=== PATIENT | female | born 1965 | race African-American/Black ===

== ENCOUNTER 2016-12-01 09:08 | Emergency (ER) | payer BC ==
[~2016-12-01] VITALS: Ht 157.5 cm; Wt 84.8 kg
[~2016-12-01 09:08] MED LIST: AMLO5TAB2 PO; ARAVA20 MG PO; ATOR40TA59 PO; GLIP2.5T4 PO; LABE200T2 PO; LEVO500T8 PO; LISI40TA PO; METF-620 PO; PRED2.5T PO; TRIA1TAB3 PO
--- NOTE | 2016-12-01 11:22 | RAD ---
Exam performed: Right lower extremity venous Doppler. Clinical Indication: Right leg swelling Date of Service:12/01/16 Comparison : None available Discussion: Multiple longitudinal and transverse high resolution real-time images of the venous system of right lower extremity were obtained with color and Doppler sampling and spectral analysis. The common femoral, superficial femoral, popliteal and proximal calf veins are all patent and demonstrate normal flow and compressibility. Normal respiratory phasicity and augmentation is present. Impression: Normal color duplex ultrasound of the venous system of right lower extremity.
--- NOTE | 2016-12-01 12:07 | PHYS DOC ---
Past Medical History Past Medical History: Arthritis, Diabetes-Type II, High Cholesterol, Hypertension, Other Additional Past Medical Histor: rheumatoid arthritis Past Surgical History: Tubal ligation Alcohol Use: Rarely Drug Use: None Adult General Chief Complaint Chief Complaint: LOWER EXTREMITY SWELLING [facility] HPI Patient is a 51 year old with history of hypertension, high cholesterol, diabetes and arthritis who presents today with right lower extremity swelling that has been going on for the last 3 weeks. Patient states she was seen by the primary care doctor who thought the swelling on the right lower extremity was due to arthritis and gave her some injection in the knee. Patient states her leg has continued to swell. Patient denies any trauma. She states she was also given antibiotics she mentions doxycycline for possible infection to the right lower extremity. Patient states she finished the antibiotics yesterday. Patient is concerned stating she still has the swelling and would like to know if she has infection to the leg. Patient denies any fever warmth or drainage from the right lower extremity. She is very insistent on doing test and to make sure she has no infection on the right lower extremity. Patient states she does elevate the leg whenever she is resting. Review of Systems Review of Systems Constitutional: Denies fever or chills [] Eyes: Denies change in visual acuity, redness, or eye pain [] HENT: Denies nasal congestion or sore throat [] Respiratory: Denies cough or shortness of breath [] Cardiovascular: No additional information not addressed in HPI [] GI: Denies abdominal pain, nausea, vomiting, bloody stools or diarrhea [] : Denies dysuria or hematuria [] Musculoskeletal: Right lower extremity swelling Integument: Denies rash or skin lesions [] Neurologic: Denies headache, focal weakness or sensory changes [] Endocrine: Denies polyuria or polydipsia [] Allergies Allergies Allergies Coded Allergies Type Severity Reaction Last Updated Verified No Known Drug Allergies 04/18/14 No Physical Exam Physical Exam Constitutional: Well developed, well nourished, no acute distress, non-toxic appearance. [] HENT: Normocephalic, atraumatic, bilateral external ears normal, oropharynx moist, no oral exudates, nose normal. [] Eyes: PERRLA, EOMI, conjunctiva normal, no discharge. [] Neck: Normal range of motion, no tenderness, supple, no stridor. [] Cardiovascular:Heart rate regular rhythm, no murmur [] Lungs & Thorax: Bilateral breath sounds clear to auscultation [] Abdomen: Bowel sounds normal, soft, no tenderness, no masses, no pulsatile masses. [] Skin: Warm, dry, no erythema, no rash. [] Back: No tenderness, no CVA tenderness. [] Extremities: Right lower extremity with +1 generalized edema. There is no warmth over the right lower extremity. There is no tenderness on the right lower extremity. Negative Homans sign to the right lower extremity. Full range of motion to the right lower extremity. +2 right pedal pulse. Cap refill less than 2 seconds the right lower extremity. Sensation intact to the right lower extremity. Neurologic: Alert and oriented X 3, normal motor function, normal sensory function, no focal deficits noted. [] Psychologic: Affect normal, judgement normal, mood normal. [] Current Patient Data Vital Signs Vital Signs Date Time Temp Pulse Resp B/P (MAP) Pulse Ox O2 Delivery O2 Flow Rate FiO2 12/01/16 10:06 98.0 73 18 213/88 (129) 96 Room Air 98.0 EKG EKG [] Radiology/Procedures Radiology/Procedures [] Course & Med Decision Making Course & Med Decision Making Pertinent Labs and Imaging studies reviewed. (See chart for details) Patient is in the ED with complaints of right lower extremity swelling for the last 3 weeks. She was seen by the PCP 3 weeks ago, she was given steroid shots in the right knee. She states she was also put on doxycycline. She is concerned she has infection in the right lower extremity. She has no fever. She is no redness to the leg. She is requesting testing to prove she has no infection. I tried reassured patient informing that she has no signs or symptoms of infection to the right lower extremity. Patient continued to insist. I ordered a Doppler of the right lower extremity which was negative. Give patient results. Instructed her to get [id number] MAY hose and wear them during the day when she is up and walking and at night if she can tolerate them. Encouraged her to elevate her right lower extremity above her heart when she is resting. Instructed that follow-up with her own doctor next week. Her blood pressure was elevated at 213/88 with a heart rate of 73 on arrival to the ED. She hadn't taken her blood pressure medicine just prior to coming to the ED. Blood pressure went down to 160s over 80s prior to discharge. Dragon Disclaimer Dragon Disclaimer This electronic medical record was generated, in whole or in part, using a voice recognition dictation system. Departure Departure Impression: Primary Impression: Edema of right lower extremity Additional Impression: Accelerated hypertension Disposition: 01 HOME, SELF-CARE Condition: STABLE Referrals: UNKNOWN PCP NAME (PCP) Follow-up with your own doctor next week Patient Instructions: Edema, [id number] Additional Instructions: You were seen due to swelling on the right lower extremity. You do not have any signs or symptoms of infection. You also completed a dose of antibiotic reducing your chance of infection. We did an ultrasound of the right lower extremity which is normal. Please elevate the extremity. Buy [id number] MAY hose and wear them. They do help with the swelling. Try and elevate your lower extremity above the heart whenever you're resting. Follow-up with your own doctor next week. Problem Qualifiers ESTEFANI PARKS APRN December 01, 2016 12:07
[2016-12-01 12:12] VITALS: BP 161/86
== END 2016-12-01 12:12 | disposition home or self-care (01) ==
LOC: ER 11:03
DX: R60.0 Localized edema (principal); I10 Essential (primary) hypertension; M19.90 Unspecified osteoarthritis, unspecified site; E11.9 Type 2 diabetes mellitus without complications; E78.00 Pure hypercholesterolemia, unspecified; M06.9 Rheumatoid arthritis, unspecified; Z98.51 Tubal ligation status
CPT/HCPCS: 93971; 99284-25

== ENCOUNTER 2016-12-05 16:44 | Emergency (ER) | payer BC ==
[~2016-12-05] VITALS: Ht 156.2 cm; Wt 86.2 kg
[2016-12-05] MEDS ORDERED: AMLO5TAB2 PO (17:17)
--- NOTE | 2016-12-05 17:17 | PHYS DOC ---
Past Medical History Past Medical History: Arthritis, Diabetes-Type II, High Cholesterol, Hypertension, Other Additional Past Medical Histor: rheumatoid arthritis Past Surgical History: Tubal ligation Alcohol Use: Rarely Drug Use: None Adult General Chief Complaint Chief Complaint: HYPERTENSION HPI HPI Patient is a 51 year old female who presents for concern of uncontrolled chronic HTN. She notes not taking amlodipine for approx 5 months and called her PCP office today and was told to come to the ED if she is concerned about starting today. She set up an appointment for 12/15/16 also. She notes minimal headache that is similar to other headaches in the past. She notes still having some leg swelling that is not any worse than prior evaluation here and at PCP. She denies chest pain, dyspnea, cough, vision changes, dizziness, numbness, tingling, weakness. Review of Systems Review of Systems Constitutional: Denies fever or chills [] Eyes: Denies change in visual acuity, redness, or eye pain [] HENT: Denies nasal congestion or sore throat [] Respiratory: Denies cough or shortness of breath [] Cardiovascular: No additional information not addressed in HPI [] GI: Denies abdominal pain, nausea, vomiting, bloody stools or diarrhea [] : Denies dysuria or hematuria [] Musculoskeletal: Denies back pain or joint pain [] Integument: Denies rash or skin lesions [] Neurologic: Denies headache, focal weakness or sensory changes [] Endocrine: Denies polyuria or polydipsia [] Allergies Allergies Allergies Coded Allergies Type Severity Reaction Last Updated Verified No Known Drug Allergies 04/18/14 No Physical Exam Physical Exam Constitutional: Well developed, well nourished, no acute distress, non-toxic appearance. [] HENT: Normocephalic, atraumatic, bilateral external ears normal, oropharynx moist, no oral exudates, nose normal. [] Eyes: PERRLA, EOMI, conjunctiva normal, no discharge. [] Neck: Normal range of motion, supple. [] Cardiovascular:Heart rate regular rhythm [] Lungs & Thorax: Bilateral breath sounds clear to auscultation [] Abdomen: Bowel sounds normal, soft, no tenderness. [] Skin: Warm, dry, no erythema, no rash. [] Back: Normal ROM. [] Extremities: No tenderness, ROM intact, trace pretibial edema. [] Neurologic: Alert and oriented X 3, normal motor function, normal sensory function, no focal deficits noted, cranial nerves II through XII intact. [] Psychologic: Affect normal, judgement normal, mood normal. [] Current Patient Data Vital Signs Vital Signs Date Time Temp Pulse Resp B/P (MAP) Pulse Ox O2 Delivery O2 Flow Rate FiO2 12/05/16 17:19 86 16 155/82 (106) 99 Room Air 12/05/16 17:00 97.5 97.5 Course & Med Decision Making Course & Med Decision Making Discussed will give script to restart amlodipine and she needs to go to outpatient clinic for further management. Return precautions given. She understands and agrees with plan. Dragon Disclaimer Dragon Disclaimer This electronic medical record was generated, in whole or in part, using a voice recognition dictation system. Departure Departure Impression: Primary Impression: Hypertension Disposition: HOME, SELF-CARE Condition: STABLE Referrals: UNKNOWN PCP NAME (PCP) Patient Instructions: Hypertension, [id number] Additional Instructions: Continue your current medications. Take amlodipine as prescribed. Follow-up with your primary care doctor within one week to discuss further long-term management of your chronic medical conditions. Return for any concerns. Scripts Amlodipine Besylate (AMLODIPINE BESYLATE) 5 Mg Tablet 5 MG PO DAILY for 10 Days, #10 TAB Prov: Rossana JEFFERSON MD 12/05/16 Problem Qualifiers Primary Impression: Hypertension Hypertension type: essential hypertension Qualified Codes: I10 - Essential ( primary) hypertension Rossana JEFFERSON MD December 05, 2016 17:17
[2016-12-05 17:19] VITALS: BP 155/82
== END 2016-12-05 17:20 | disposition home or self-care (01) ==
LOC: ER 16:44
DX: I10 Essential (primary) hypertension (principal); R51 Headache; E78.00 Pure hypercholesterolemia, unspecified; E11.9 Type 2 diabetes mellitus without complications; M06.9 Rheumatoid arthritis, unspecified; Z98.51 Tubal ligation status
CPT/HCPCS: 99283

== ENCOUNTER 2018-07-31 18:48 | Emergency (ER) | payer BC, OTHER ==
[~2018-07-31] VITALS: Ht 154.9 cm; Wt 79.8 kg
[~2018-07-31 18:48] MED LIST changes: +AMLO5TAB10 PO; -AMLO5TAB2 PO; -LABE200T2 PO; +LABE200T4 PO; +LISI-130 PO; -LISI40TA PO; -METF-620 PO; +METF10007 PO
[2018-07-31 19:48] LABS: BILIRUBIN,URINE NEGATIVE (NEG); CLARITY,URINE CLEAR; COLOR,URINE YELLOW; NITRITE,URINE NEGATIVE (NEG); PROTEIN,URINE NEGATIVE (NEG-TRACE); UROBILINOGEN,URINE 0.2 mg/dL (0.2 mg/dL)
[2018-07-31 19:49] LABS: BASO # 0.2 x10^3/uL (0.0-0.2); BASO % 2 % (0-3); EOS # 0.3 x10^3/uL (0.0-0.7); EOS % 3 % (0-3); HEMATOCRIT 35.1 % (36.0-47.0); HEMOGLOBIN 11.7 g/dL (12.0-15.5); LYMPH # 1.9 x10^3/uL (1.0-4.8); LYMPH % 19 % (24-48); MEAN CORPUSCULAR HEMOGLOBIN 28 pg (25-35); MEAN CORPUSCULAR HGB CONC 33 g/dL (31-37); MEAN CORPUSCULAR VOLUME 83 fL (79-100); MONO % 10 % (0-9); NEUT # 6.8 x10^3uL (1.8-7.7); NEUT % 67 % (31-73); PLATELET COUNT 223 x10^3/uL (140-400); RED BLOOD COUNT 4.22 x10^6/uL (3.50-5.40); RED CELL DISTRIBUTION WIDTH 16.1 % (11.5-14.5); WHITE BLOOD COUNT 10.2 x10^3/uL (4.0-11.0)
[2018-07-31 19:56] LABS: BACTERIA,URINE FEW /HPF (0-FEW); RBC,URINE 0 /HPF (0-2); WBC,URINE RARE /HPF (0-4)
[2018-07-31 20:00] LABS: CREATININE 1.1 mg/dL (0.6-1.0); GFR 62.9; POTASSIUM 3.8 mmol/L (3.5-5.1)
[2018-07-31] MEDS ORDERED: ONDANSETRON PF 4 MG/2 ML VIAL. IV ONE (20:00)
[2018-07-31] MEDS ORDERED: fentaNYL PF VIAL 100 MCG/2 ML VIAL IV ONE (20:00)
--- NOTE | 2018-07-31 20:02 | PHYS DOC ---
Past Medical History Past Medical History: Arthritis, Diabetes-Type II, High Cholesterol, Hypertension, Other Additional Past Medical Histor: rheumatoid arthritis, SPINAL FRACTURE Past Surgical History: Tubal ligation Alcohol Use: Rarely Drug Use: None Adult General Chief Complaint Chief Complaint: MULTIPLE COMPLAINTS HPI HPI Patient is a 53 year old history of hypertension chronic headaches who presents with persistent headache with hypertension past 24 hours.BP war reported to 190's/110's Headache is described as dull frontal and is rated moderate. It is not the worst headache of the patient's life. Patient continuing blood pressure and states headache is improved this afternoon but persists promptly, emergency department. No pain medications taken prior to ED arrival. Patient is not on antiplatelet therapy. No fever, rash, neck stiffness. No chest pain palpitations. No change of vision, dizziness, extremity weakness loss of sensation. No other acute symptoms or complaints. [] Review of Systems Review of Systems ROS as per HPI All other systems were reviewed and found to be within normal limits, except as documented in this note. Current Medications Current Medications Current Medications Medications (Trade) Dose Ordered Sig/Alexandrea Start Time Stop Time Status Last Admin Dose Admin Fentanyl Citrate (Fentanyl 2ml Vial) 75 mcg 1X ONCE 07/31/18 20:00 07/31/18 20:01 DC 07/31/18 19:59 75 MCG Ketorolac Tromethamine (Toradol 30mg Vial) 30 mg 1X ONCE 07/31/18 22:30 07/31/18 22:31 UNV Labetalol HCl (Normodyne Iv Push) 20 mg 1X ONCE 07/31/18 21:00 07/31/18 21:01 DC 07/31/18 20:56 20 MG Morphine Sulfate (Morphine Sulfate) 5 mg 1X ONCE 07/31/18 21:30 07/31/18 21:31 DC 07/31/18 21:40 5 MG Ondansetron HCl (Zofran) 4 mg 1X ONCE 07/31/18 20:00 07/31/18 20:01 DC 07/31/18 19:58 4 MG Sodium Chloride 1,000 ml @ 1,000 mls/hr 1X ONCE 07/31/18 21:00 07/31/18 21:59 DC 07/31/18 20:56 1,000 MLS/HR Allergies Allergies Allergies Coded Allergies Type Severity Reaction Last Updated Verified No Known Drug Allergies 04/18/14 No Physical Exam Physical Exam Constitutional: Well developed, well nourished, no acute distress, non-toxic appearance. [] HENT: Normocephalic, atraumatic, bilateral external ears normal, oropharynx moist, nose normal. [] Eyes: PERRLA, EOMI, conjunctiva normal. [] Neck: Normal range of motion. [] Cardiovascular:Heart rate regular rhythm, no murmur [] Lungs & Thorax: Bilateral breath sounds clear to auscultation [] Abdomen: Bowel sounds normal, soft, no tenderness. [] Skin: Warm, dry, no erythema. [] Back: No tenderness. [] Extremities: No tenderness, no cyanosis, no edema. [] Neurologic: Alert and oriented X 3, CN 2-12 grossly intact, normal motor function, normal sensory function, no focal deficits noted. [] Psychologic: Affect normal, judgement normal, mood normal. [] Current Patient Data Vital Signs Vital Signs Date Time Temp Pulse Resp B/P (MAP) Pulse Ox O2 Delivery O2 Flow Rate FiO2 07/31/18 21:55 88 163/102 (122) 95 Room Air 07/31/18 21:40 16 07/31/18 18:48 98.1 98.1 Lab Values Laboratory Tests Test 07/31/18 19:15 07/31/18 19:20 White Blood Count 10.2 x10^3/uL (4.0-11.0) Red Blood Count 4.22 x10^6/uL (3.50-5.40) Hemoglobin 11.7 g/dL (12.0-15.5) L Hematocrit 35.1 % (36.0-47.0) L Mean Corpuscular Volume 83 fL (79-100) Mean Corpuscular Hemoglobin 28 pg (25-35) Mean Corpuscular Hemoglobin Concent 33 g/dL (31-37) Red Cell Distribution Width 16.1 % (11.5-14.5) H Platelet Count 223 x10^3/uL (140-400) Neutrophils (%) (Auto) 67 % (31-73) Lymphocytes (%) (Auto) 19 % (24-48) L Monocytes (%) (Auto) 10 % (0-9) H Eosinophils (%) (Auto) 3 % (0-3) Basophils (%) (Auto) 2 % (0-3) Neutrophils # (Auto) 6.8 x10^3uL (1.8-7.7) Lymphocytes # (Auto) 1.9 x10^3/uL (1.0-4.8) Monocytes # (Auto) 1.0 x10^3/uL (0.0-1.1) Eosinophils # (Auto) 0.3 x10^3/uL (0.0-0.7) Basophils # (Auto) 0.2 x10^3/uL (0.0-0.2) Sodium Level 142 mmol/L (136-145) Potassium Level 3.8 mmol/L (3.5-5.1) Chloride Level 103 mmol/L (98-107) Carbon Dioxide Level 28 mmol/L (21-32) Anion Gap 11 (6-14) Blood Urea Nitrogen 16 mg/dL (7-20) Creatinine 1.1 mg/dL (0.6-1.0) H Estimated GFR (Cockcroft-Gault) 62.9 Glucose Level 150 mg/dL (70-99) H Calcium Level 9.2 mg/dL (8.5-10.1) Urine Collection Type Unknown Urine Color Yellow Urine Clarity Clear Urine pH 6.0 Urine Specific [place] 1.010 Urine Protein Negative mg/dL (NEG-TRACE) Urine Glucose (UA) Negative mg/dL (NEG) Urine Ketones (Stick) Negative mg/dL (NEG) Urine Blood Negative (NEG) Urine Nitrite Negative (NEG) Urine Bilirubin Negative (NEG) Urine Urobilinogen Dipstick 0.2 mg/dL (0.2 mg/dL) Urine Leukocyte Esterase Negative (NEG) Urine RBC 0 /HPF (0-2) Urine WBC Rare /HPF (0-4) Urine Bacteria Few /HPF (0-FEW) Laboratory Tests 07/31/18 19:15 Laboratory Tests 07/31/18 19:15 EKG EKG [] Radiology/Procedures Radiology/Procedures [CT head: Reviewed] Course & Med Decision Making Course & Med Decision Making Pertinent Labs and Imaging studies reviewed. (See chart for details) [Patient's headache, blood pressure improved with treatment. Findings of sinusitis present. Antibiotics, pain medication prescribed. PCP follow-up recommended. Return precautions reviewed. Patient verbalizes understanding agreement discharge instructions prior to departure.] Dragon Disclaimer Dragon Disclaimer This electronic medical record was generated, in whole or in part, using a voice recognition dictation system. Departure Departure Impression: Primary Impression: Headache Additional Impressions: Hypertension Sinusitis Disposition: 01 HOME, SELF-CARE Condition: GOOD Referrals: UNKNOWN PCP NAME (PCP) Patient Instructions: Headache and Allergies, Hypertension, Sinusitis, Easy-to- Read Additional Instructions: Please increase fluids, take antibiotics and pain medication medications as prescribed. T home blood pressure medication. Follow-up with your PCP in 2-3 days for reevaluation. Return to the ED if new or worsening symptoms Scripts Amoxicillin (AMOXICILLIN) 875 Mg Tablet 1 TAB PO BID, #28 TAB Prov: ALDO FOLEY DO 07/31/18 Problem Qualifiers ALDO FOLEY DO Jul 31, 2018 20:01
[2018-07-31 20:08] LABS: CALCIUM 9.2 mg/dL (8.5-10.1)
[2018-07-31] MEDS ORDERED: AMLO10TA8 PO (20:24)
[2018-07-31] MEDS ORDERED: INSU3INS2 SQ (20:24)
[2018-07-31] MEDS ORDERED: ATORVASTATIN CA80 MG PO (20:24)
[2018-07-31] MEDS ORDERED: METF500T16 PO (20:24)
[2018-07-31] MEDS ORDERED: INSU100I17 SQ (20:24)
[2018-07-31] MEDS ORDERED: HYDR-2869 PO (20:24)
[2018-07-31] MEDS ORDERED: INSU100V8 SQ (20:24)
[2018-07-31] MEDS ORDERED: VALA500T PO (20:24)
[2018-07-31] MEDS ORDERED: HYDR-3164 PO (20:24)
[2018-07-31] MEDS ORDERED: ASPI-612 PO (20:24)
--- NOTE | 2018-07-31 20:39 | RAD ---
Examination: CT HEAD WO CONTRAST History: WALDRON x 2 days, prior sent Comparison/Correlation: 04/18/2014 CT head without contrast Findings: Axial images of the head were obtained without contrast. Ventricles are normal size. No intracranial hemorrhage, midline shift, or mass effect. Globes and optic nerves are unremarkable. Partial opacification of paranasal sinuses identified. Impression: Chronic paranasal sinusitis. Otherwise unremarkable exam. Electronically signed by: Edwin Wallace MD (07/31/2018 8:35 PM) [facility]
[2018-07-31] MEDS ORDERED: IV NORMAL SALINE 1000ML BAG 1,000 ML IV ONE (21:00)
[2018-07-31] MEDS ORDERED: LABETALOL 20 MG/4 ML DISP.SYRIN. IVP ONE (21:00)
[2018-07-31] MEDS ORDERED: MORPHINE SULFATE 10 MG/ML VIAL. IV ONE (21:30)
[2018-07-31] MEDS ORDERED: AMOX875T PO (22:22)
[2018-07-31] MEDS ORDERED: HYDR-3135 PO (22:24)
[2018-07-31] MEDS ORDERED: KETOROLAC 30 MG/ML VIAL. IV ONE (22:30)
[2018-07-31 22:35] VITALS: BP 148/93
== END 2018-07-31 23:00 | disposition home or self-care (01) ==
LOC: ER 18:48
DX: I10 Essential (primary) hypertension (principal); R51 Headache; J32.9 Chronic sinusitis, unspecified; M19.90 Unspecified osteoarthritis, unspecified site; E11.9 Type 2 diabetes mellitus without complications; E78.00 Pure hypercholesterolemia, unspecified; Z98.51 Tubal ligation status
CPT/HCPCS: 36415; 70450; 80048; 81001; 85025; 96374; 96375; 99284; J1885; J2270; J2405; J3010; J3490; J7030

== ENCOUNTER 2018-10-26 19:24 | Emergency (ER) | payer OTHER ==
[~2018-10-26] VITALS: Ht 154.9 cm; Wt 83.9 kg
[~2018-10-26 19:24] MED LIST changes: +AMLO10TA8 PO; +AMOX875T PO; +ASPI-612 PO; +ATORVASTATIN CA80 MG PO; +HYDR-2869 PO; +HYDR-3135 PO; +HYDR-3164 PO; +INSU100I17 SQ; +INSU100V8 SQ; +INSU3INS2 SQ; +METF500T16 PO; +VALA500T PO
[2018-10-26 20:51] LABS: BASO # 0.1 x10^3/uL (0.0-0.2); BASO % 1 % (0-3); EOS # 0.2 x10^3/uL (0.0-0.7); EOS % 2 % (0-3); HEMATOCRIT 39.4 % (36.0-47.0); HEMOGLOBIN 12.6 g/dL (12.0-15.5); LYMPH # 1.6 x10^3/uL (1.0-4.8); LYMPH % 23 % (24-48); MEAN CORPUSCULAR HEMOGLOBIN 26 pg (25-35); MEAN CORPUSCULAR HGB CONC 32 g/dL (31-37); MEAN CORPUSCULAR VOLUME 81 fL (79-100); MONO # 0.8 x10^3/uL (0.0-1.1); MONO % 12 % (0-9); NEUT # 4.4 x10^3uL (1.8-7.7); NEUT % 62 % (31-73); PLATELET COUNT 169 x10^3/uL (140-400); RED BLOOD COUNT 4.89 x10^6/uL (3.50-5.40); RED CELL DISTRIBUTION WIDTH 15.8 % (11.5-14.5); WHITE BLOOD COUNT 7.1 x10^3/uL (4.0-11.0)
--- NOTE | 2018-10-26 21:01 | PHYS DOC ---
Past Medical History Past Medical History: Arthritis, Diabetes-Type II, High Cholesterol, Hypertension, Other Additional Past Medical Histor: rheumatoid arthritis, SPINAL FRACTURE Past Surgical History: Tubal ligation Alcohol Use: Rarely Drug Use: None Adult General Chief Complaint Chief Complaint: HYPERTENSION HPI HPI Patient is a 53 year old [f__sex] who presents with [] Review of Systems Review of Systems Constitutional: Denies fever or chills [] Eyes: Denies change in visual acuity, redness, or eye pain [] HENT: Denies nasal congestion or sore throat [] Respiratory: Denies cough or shortness of breath [] Cardiovascular: No additional information not addressed in HPI [] GI: Denies abdominal pain, nausea, vomiting, bloody stools or diarrhea [] : Denies dysuria or hematuria [] Musculoskeletal: Denies back pain or joint pain [] Integument: Denies rash or skin lesions [] Neurologic: Denies headache, focal weakness or sensory changes [] Endocrine: Denies polyuria or polydipsia [] All other systems were reviewed and found to be within normal limits, except as documented in this note. Current Medications Current Medications Current Medications Medications (Trade) Dose Ordered Sig/Alexandrea Start Time Stop Time Status Last Admin Dose Admin Labetalol HCl (Normodyne Iv Push) 10 mg 1X ONCE 10/26/18 21:30 10/26/18 21:31 UNV Allergies Allergies Allergies Coded Allergies Type Severity Reaction Last Updated Verified No Known Drug Allergies 04/18/14 No Physical Exam Physical Exam Constitutional: Well developed, well nourished, no acute distress, non-toxic appearance. [] HENT: Normocephalic, atraumatic, bilateral external ears normal, oropharynx moist, no oral exudates, nose normal. [] Eyes: PERRLA, EOMI, conjunctiva normal, no discharge. [] Neck: Normal range of motion, no tenderness, supple, no stridor. [] Cardiovascular:Heart rate regular rhythm, no murmur [] Lungs & Thorax: Bilateral breath sounds clear to auscultation [] Abdomen: Bowel sounds normal, soft, no tenderness, no masses, no pulsatile masses. [] Skin: Warm, dry, no erythema, no rash. [] Back: No tenderness, no CVA tenderness. [] Extremities: No tenderness, no cyanosis, no clubbing, ROM intact, no edema. [] Neurologic: Alert and oriented X 3, normal motor function, normal sensory function, no focal deficits noted. [] Psychologic: Affect normal, judgement normal, mood normal. [] Current Patient Data Vital Signs Vital Signs Date Time Temp Pulse Resp B/P (MAP) Pulse Ox O2 Delivery O2 Flow Rate FiO2 10/26/18 19:47 98.1 82 18 192/89 (123) 99 Room Air 98.1 Lab Values Laboratory Tests Test 10/26/18 20:40 White Blood Count 7.1 x10^3/uL (4.0-11.0) Red Blood Count 4.89 x10^6/uL (3.50-5.40) Hemoglobin 12.6 g/dL (12.0-15.5) Hematocrit 39.4 % (36.0-47.0) Mean Corpuscular Volume 81 fL (79-100) Mean Corpuscular Hemoglobin 26 pg (25-35) Mean Corpuscular Hemoglobin Concent 32 g/dL (31-37) Red Cell Distribution Width 15.8 % (11.5-14.5) H Platelet Count 169 x10^3/uL (140-400) Neutrophils (%) (Auto) 62 % (31-73) Lymphocytes (%) (Auto) 23 % (24-48) L Monocytes (%) (Auto) 12 % (0-9) H Eosinophils (%) (Auto) 2 % (0-3) Basophils (%) (Auto) 1 % (0-3) Neutrophils # (Auto) 4.4 x10^3uL (1.8-7.7) Lymphocytes # (Auto) 1.6 x10^3/uL (1.0-4.8) Monocytes # (Auto) 0.8 x10^3/uL (0.0-1.1) Eosinophils # (Auto) 0.2 x10^3/uL (0.0-0.7) Basophils # (Auto) 0.1 x10^3/uL (0.0-0.2) Sodium Level 144 mmol/L (136-145) Potassium Level 3.4 mmol/L (3.5-5.1) L Chloride Level 106 mmol/L (98-107) Carbon Dioxide Level 31 mmol/L (21-32) Anion Gap 7 (6-14) Blood Urea Nitrogen 15 mg/dL (7-20) Creatinine 1.0 mg/dL (0.6-1.0) Estimated GFR (Cockcroft-Gault) 70.2 BUN/Creatinine Ratio 15 (6-20) Glucose Level 136 mg/dL (70-99) H Calcium Level 9.8 mg/dL (8.5-10.1) Magnesium Level 1.8 mg/dL (1.8-2.4) Total Bilirubin 0.3 mg/dL (0.2-1.0) Aspartate Amino Transferase (AST) 25 U/L (15-37) Alanine Aminotransferase (ALT) 23 U/L (14-59) Alkaline Phosphatase 111 U/L (46-116) Creatine Kinase 285 U/L (26-192) H Creatine Kinase MB (Mass) 2.8 ng/mL (0.0-3.6) Creatine Kinase MB Relative Index 1.0 % (0-4) Troponin I Quantitative < 0.017 ng/mL (0.000-0.055) Total Protein 7.3 g/dL (6.4-8.2) Albumin 3.0 g/dL (3.4-5.0) L Albumin/Globulin Ratio 0.7 (1.0-1.7) L Laboratory Tests 10/26/18 20:40 Laboratory Tests 10/26/18 20:40 EKG EKG @2037 NSR at 76bpm, NO ST elevation, nonspecific t wave inversion in V4-V6 Radiology/Procedures Radiology/Procedures PROCEDURE: CT HEAD WO CONTRAST CT HEAD INDICATION: headache COMPARISON: 07/31/2018 Exposure: One or more of the following individualized dose reduction techniques were utilized for this examination: 1. Automated exposure control 2. Adjustment of the mA and/or kV according to patient size 3. Use of iterative reconstruction technique TECHNIQUE: 5 mm contiguous axial images were obtained from the skull base to the vertex FINDINGS: No abnormal attenuation within the brain parenchyma. No evidence of acute intracranial hemorrhage. No extra-axial fluid collections. No mass effect or midline shift. Ventricular size is appropriate. Basal cisterns are patent. No fractures identified.Kam-white differentiation is preserved.Globes and orbits are within normal limits. Paranasal sinuses and mastoid air cells are clear. IMPRESSION: No acute intracranial findings. Electronically signed by: Arnol Gonzalez MD (10/26/2018 9:09 PM) [facility] Course & Med Decision Making Course & Med Decision Making Pertinent Labs and Imaging studies reviewed. (See chart for details) [] Gómez Disclaimer Dragsol Disclaimer This electronic medical record was generated, in whole or in part, using a voice recognition dictation system. Departure Departure Impression: Primary Impression: Hypertension Disposition: 01 HOME, SELF-CARE Condition: STABLE Referrals: UNKNOWN PCP NAME (PCP) Patient Instructions: Hypertension Scripts Clonidine Hcl (CLONIDINE HCL) 0.1 Mg Tablet 0.1 MG PO BID PRN for ELEVATED BP, SEE COMMENTS, #14 TAB Take for systolic blood pressure > 185 or for diastolic blood pressure > 105. Prov: MARCIA FELDMAN DO 10/26/18 Problem Qualifiers Primary Impression: Hypertension Hypertension type: unspecified Qualified Codes: I10 - Essential (primary) hypertension MARCIA FELDMAN DO Oct 26, 2018 21:01
[2018-10-26 21:04] LABS: CALCIUM 9.8 mg/dL (8.5-10.1); GFR 70.2; POTASSIUM 3.4 mmol/L (3.5-5.1)
[2018-10-26 21:10] LABS: ALBUMIN/GLOBULIN RATIO 0.7 (1.0-1.7); MAGNESIUM 1.8 mg/dL (1.8-2.4); TOTAL BILIRUBIN 0.3 mg/dL (0.2-1.0); TOTAL PROTEIN 7.3 g/dL (6.4-8.2)
--- NOTE | 2018-10-26 21:12 | RAD ---
CT HEAD INDICATION: headache COMPARISON: 07/31/2018 Exposure: One or more of the following individualized dose reduction techniques were utilized for this examination: 1. Automated exposure control 2. Adjustment of the mA and/or kV according to patient size 3. Use of iterative reconstruction technique TECHNIQUE: 5 mm contiguous axial images were obtained from the skull base to the vertex FINDINGS: No abnormal attenuation within the brain parenchyma. No evidence of acute intracranial hemorrhage. No extra-axial fluid collections. No mass effect or midline shift. Ventricular size is appropriate. Basal cisterns are patent. No fractures identified.Kam-white differentiation is preserved.Globes and orbits are within normal limits. Paranasal sinuses and mastoid air cells are clear. IMPRESSION: No acute intracranial findings. Electronically signed by: Arnol Gonzalez MD (10/26/2018 9:09 PM) [facility]
[2018-10-26] MEDS ORDERED: CLON0.1T PO (21:35)
[2018-10-26] MEDS ORDERED: LABETALOL 20 MG/4 ML DISP.SYRIN. IVP ONE (21:45)
[2018-10-26 22:15] VITALS: BP 171/103
--- NOTE | 2018-10-27 08:26 | EKG ---
[facility] [address] [place] [address] Test Date: 2018-10-26 Test Time: 20:37:13 Pat Name: YENIFER HE Department: Room: Gender: Female Step Finisher: : 1965 Requested By: MARCIA FELDMAN Order Number: [id number] Reading MD: Paul Valencia MD Measurements Intervals [place] Rate: 76 P: 32 TX: 200 QRS: 14 QRSD: 78 T: 85 QT: 376 QTc: 427 Interpretive Statements SINUS RHYTHM ATRIAL PREMATURE COMPLEX(ES) QRS(T) CONTOUR ABNORMALITY CANNOT RULE OUT ANTEROSEPTAL MYOCARDIAL DAMAGE BORDERLINE ECG CONSIDER LVH CONSIDER LATERAL ISCHEMIA Electronically Signed On 10-31-2018 9:43:59 CDT by Paul Valencia MD
== END 2018-10-26 22:50 | disposition home or self-care (01) ==
LOC: ER 19:24
DX: I10 Essential (primary) hypertension (principal); R51 Headache; E11.9 Type 2 diabetes mellitus without complications; E78.00 Pure hypercholesterolemia, unspecified; M06.9 Rheumatoid arthritis, unspecified; Z98.51 Tubal ligation status
CPT/HCPCS: 36415; 70450; 80053; 82553; 83735; 84484; 85025; 93005; 96374; 99284; J3490

== ENCOUNTER → 2019-12-01 | Outpatient (CLI) | payer OTHER ==
[~2019-12-01] MED LIST changes: +CHLO25TA2 PO; +CLON0.1T PO; -VALA500T PO; +VALA500T9 PO
== END | disposition home or self-care (01) ==
LOC: LAB 14:27
PROVIDERS: ATTEND Nurse Practitioner Family
DX: Z01.812 Encounter for preprocedural laboratory examination (principal); Z11.59 Encounter for screening for other viral diseases
CPT/HCPCS: 36415; 87635

== ENCOUNTER 2019-12-04 09:58 | Day surgery (SDC) | payer OTHER ==
[~2019-12-04 09:58] MED LIST changes: +DEXAMETHASONE SOD PHOS 4 MG/ML VIAL ONE; +FAMOTIDINE 20 MG/2 ML VIAL ONE; +HYDROmorphone 2 MG/ML VIAL IV PRN; +IV RINGERS,LACTATED 1000ML 1,000 ML IV SCH; +LIDOCAINE 2% PF 5 ML VIAL. ONE; +MIDAZOLAM HCL/PF 2 MG/2 ML VIAL. ONE; +MORPHINE SULFATE 2 MG/ML VIAL. IV PRN; +ONDANSETRON PF 4 MG/2 ML VIAL. IV PRN; +ONDANSETRON PF 4 MG/2 ML VIAL. ONE; +PROCHLORPERAZINE 10 MG/2 ML VIAL. IV PRN; +PROPOFOL 10 MG/ML (20ML) VIAL. IV ONE; +fentaNYL PF VIAL 100 MCG/2 ML VIAL IV PRN; +fentaNYL PF VIAL 100 MCG/2 ML VIAL ONE
[2019-12-04] MEDS ORDERED: INSULIN LISPRO 100 UNIT/ML 3ML VIAL for OP,RR ONLY. SQ PRN (10:45)
[2019-12-04] MEDS ORDERED: HYDROCORTISONE SOD SUCC/PF 100 MG/2 ML VIAL. ONE (11:55)
[2019-12-04] MEDS ORDERED: BUPIVACAINE-EPI 0.25%-1:200000 MPF 30 ML VIAL. ONE (12:13)
[2019-12-04] MEDS ORDERED: FERRIC SUBSULFATE 8 ML SOL.W.APPL TP ONE (12:17)
[2019-12-04] MEDS ORDERED: SEVOFLURANE 31 TO 60 MINUTES. IH ONE (12:41)
--- NOTE | 2019-12-04 12:54 | PDOC ---
BRIEF OPERATIVE NOTE Date: December 04, 2019 Pre-Op Diagnosis +HR HPV 18/45 with repeatitive abnormal paps Post-Op Diagnosis same Procedure Performed LEEP Surgeon Dr. Salgado Anesthesiologist Dr. Champion Anesthesia Type: General Blood Loss 5cc IV Fluid see anesthesia records Urine Output 150 straight cath prior to procedure Specimens Obtained ecto and endocervical specimens Findings small area at TZ only Complications none Operative Note [id number] ISIDRO SALGADO MD December 04, 2019 12:54
[2019-12-04] MEDS ORDERED: SIMETHICONE 80 MG TAB.CHEW PO PRN (13:00)
[2019-12-04] MEDS ORDERED: MAG HYDROX/ALUMINUM HYD/SIMETH 30 ML ORAL.SUSP PO PRN (13:00)
[2019-12-04] MEDS ORDERED: diphenhydrAMINE 50 MG/ML VIAL IV PRN (13:00)
[2019-12-04] MEDS ORDERED: HYDROcodone/APAP 5/325MG 1 TAB TABLET PO PRN (13:00)
[2019-12-04] MEDS ORDERED: CALCIUM CARBONATE 500 MG TAB.CHEW PO PRN (13:00)
[2019-12-04] MEDS ORDERED: diphenhydrAMINE HCL 25 MG CAPSULE PO PRN (13:00)
[2019-12-04] MEDS ORDERED: NALOXONE 0.4 MG/ML VIAL. IV PRN (13:00)
[2019-12-04] MEDS ORDERED: 0.9 % SODIUM CHLORIDE 10 ML DISP.SYRIN. IV PRN (13:00)
--- NOTE | 2019-12-04 13:11 | CONS ---
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 PROCEDURE: Loop electrosurgical excision procedure. SURGEON: Amanda Salgado MD JOURNAL ENTRY AUDIT CLERK: OR personnel. ANESTHESIOLOGIST: Dr. Champion. ANESTHESIA: General. BLOOD LOSS: Less than 5 mL. URINE OUTPUT: 150 mL, straight cath prior to procedure. IV FLUIDS: Please see anesthesia records. SPECIMEN: Ectocervical and endocervical specimens. FINDINGS: Small area that did not accept the Lugol's at the transformation zone only. COMPLICATIONS: None. DESCRIPTION OF PROCEDURE: This patient was taken to the operating room where general anesthesia was placed. The patient was placed in dorsal lithotomy position. Upon my arrival, a timeout was performed. Once everyone agreed on the site, procedure, patient and everything else, Betadine was used to cleanse the external urethral opening and a straight cath urine was performed. Once this was done, a blue laser safe speculum was placed in the patient's vagina. She was first cleansed with acetic acid and then used Lugol's to delineate the abnormal area of the cervix. A small loop was picked set on a 50/70 cut, coag. The ectocervical specimen was removed and then a small shave on the endocervical specimen was taken as well on the cut setting. Once this was done, the loop was replaced with the ball cautery on coagulation and coagulation got excellent hemostasis. Once this was done, the laser safe speculum was removed and the patient is currently being awakened from the anesthesia. AMANDA SALGADO MD DR: JOANIE/ashley JOB#: [id number] / [id number]
[2019-12-04] MEDS ORDERED: HYDROcodone/APAP 5/325MG 1 TAB TABLET PO ONE (13:15)
[2019-12-04] MEDS ORDERED: HYDR-3164 PO (13:15)
[2019-12-04 13:40] VITALS: BP 148/78
--- NOTE | 2019-12-05 09:59 | OP ---
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 PROCEDURE: Loop electrosurgical excision procedure. SURGEON: Amanda Salgado MD TRANSACTION PROCESSOR: OR personnel. ANESTHESIOLOGIST: Dr. Champion. ANESTHESIA: General. BLOOD LOSS: Less than 5 mL. URINE OUTPUT: 150 mL, straight cath prior to procedure. IV FLUIDS: Please see anesthesia records. SPECIMEN: Ectocervical and endocervical specimens. FINDINGS: Small area that did not accept the Lugol's at the transformation zone only. COMPLICATIONS: None. DESCRIPTION OF PROCEDURE: This patient was taken to the operating room where general anesthesia was placed. The patient was placed in dorsal lithotomy position. Upon my arrival, a timeout was performed. Once everyone agreed on the site, procedure, patient and everything else, Betadine was used to cleanse the external urethral opening and a straight cath urine was performed. Once this was done, a blue laser safe speculum was placed in the patient's vagina. She was first cleansed with acetic acid and then used Lugol's to delineate the abnormal area of the cervix. A small loop was picked set on a 50/70 cut, coag. The ectocervical specimen was removed and then a small shave on the endocervical specimen was taken as well on the cut setting. Once this was done, the loop was replaced with the ball cautery on coagulation and coagulation got excellent hemostasis. Once this was done, the laser safe speculum was removed and the patient is currently being awakened from the anesthesia. AMANDA SALGADO MD DR: JOANIE/ashley JOB#: [id number] / [id number]
--- NOTE | 2019-12-09 15:07 | PATHOLOGY ---
[facility] Accession Number: [id number] . 01 Material submitted: . PART A: ectocervix - ECTOCERVICAL CERVICAL SPECIMEN PART B: endocervix - ENDOCERVICAL CERVICAL SPECIMEN . 01 Clinical history: . Abnormal pap . 02 Diagnosis: A. 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 - Endocervical and ectocervical margins negative for dysplasia. . B. Endocervical tissue, endocervical LEEP: - Chronic endocervicitis - negative for dysplasia. (JPM:pit/sarah 12/09/2019) [facility] 12/09/2019 0933 Local . 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 There is no high grade dysplasia. 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 The case is also examined by Dr. Higginbotham, who has a specialty interest in Linux K[employer] pathology. She concurs with the diagnosis. (JPM:sarah; 12/09/2019) . 02 Electronically signed: . Rigo Sanchez MD, Pathologist NPI- [id number] . 01 Gross description: . A. The specimen is received in formalin labeled "Jenny Morel, ectocervical cervical specimen" and consists of an unoriented segment of pink-goldman glistening to dull cervical tissue measuring 3.2 x 1.8 x 0.6 cm. The margin is inked black. It is serially sectioned and entirely submitted in A1-A2. . B. The specimen is received in formalin labeled "Jenny Morel, endocervical cervical specimen" and consists of 3 unoriented segments of pink-goldman cervical tissue measuring from 0.7 x 0.6 x 0.3 cm to 1.6 x 0.9 x 0.3 cm. The surgical margins are inked. They are serially sectioned and entirely submitted in B1-B2. ([facility]; 12/04/2019) JFQ/KINGA 12/04/2019 1719 Local . 02 Pathologist provided ICD-10: N87.0, N72 . 02 CPT . 203064, [id number] Specimen Comment: A courtesy copy of this report has been sent to [phone], [phone] Specimen Comment: [phone] Specimen Comment: Report sent to / DR KITCHEN Performed at: 01 [facility] [address] [facility] [address], [place] [id number] MD Pranay Kern MD Phone: [phone] Performed at: 02 [facility] [address] [place], [place] [id number] MD Rigo Sanchez MD Phone: [phone]
== END 2019-12-04 14:00 | disposition home or self-care (01) ==
LOC: SURG 09:58
PROVIDERS: ATTEND Obstetrics & Gynecology
DX: A63.0 Anogenital (venereal) warts (principal); N72 Inflammatory disease of cervix uteri; E11.9 Type 2 diabetes mellitus without complications; E66.9 Obesity, unspecified; Z68.32 Body mass index [BMI] 32.0-32.9, adult; Z87.39 Personal history of other diseases of the musculoskeletal system and connective tissue; Z79.899 Other long term (current) drug therapy; Z98.51 Tubal ligation status; Z72.89 Other problems related to lifestyle; Z79.4 Long term (current) use of insulin
CPT/HCPCS: 57522; 82962; J1100; J1720; J1815; J2250; J2405; J2704; J3010; J3490; J7120